=== PATIENT | male | born 1985 | race African-American/Black ===

== ENCOUNTER 2022-03-27 06:10 | Observation (INO) ==
[2022-03-27 07:00] LABS: Basophils % 0.3 % (0.0-0.8); Eosinophils # 0.1 10*3/uL (0.0-0.87); Eosinophils % 0.5 % (0.00-10.9); Hematocrit 42.4 VOL% (42.0-52.0); Hemoglobin 14.2 GM/DL (14.0-18.0); Immature Granulocytes % 0.2 %; Immature Granulocytes Absolute 0.02 #; Lymphocytes # 2.5 10*3/uL (1.4-4.0); Lymphocytes % 25.6 % (21.2-54.2); Mean Corpuscular HGB Conc 33.5 GM/DL (32-36); Mean Corpuscular Volume 101.2 FL (87-102); Mean Platelet Volume 11.8 FL (9.6-12.0); Monocytes # 0.8 10*3/uL (0.11-0.8); Monocytes % 7.9 % (1.7-12.7); Neutrophils % 65.5 % (38.7-73.9); Platelet Count 163 T/CUMM (130-400); Red Blood Count 4.19 MC/CUMM (3.8-5.5); Red Cell Distribution Width 13.3 % (9.3-17.3); White Blood Count 9.7 T/CUMM (4-12)
[2022-03-27 07:31] LABS: Calcium 8.8 MG/DL (8.5-10.1); Osmolality,Calculated 276.5 MOS/KG (273-304); Potassium 3.8 MMOL/L (3.5-5.1)
[2022-03-27] MEDS ORDERED: hydrALAZINE 20 MG/1 ML VIAL IV STA (09:14)
[2022-03-27] MEDS ORDERED: RIVAROXABAN 15 MG TABLET PO STA (09:45)
[2022-03-27] MEDS ORDERED: RIVAROXABAN 10 MG TABLET ONE (09:53)
[2022-03-27] MEDS ORDERED: GLUCAGON 1 MG VIAL IM PRN (10:51)
[2022-03-27] MEDS ORDERED: ACETAMINOPHEN 325 MG TABLET PO PRN (10:51)
[2022-03-27] MEDS ORDERED: ONDANSETRON 4 MG/2 ML VIAL IV PRN (10:51)
[2022-03-27] MEDS ORDERED: DEXTROSE 10% 250 ML BAG IV PRN (10:58)
[2022-03-27] MEDS ORDERED: NICOTINE 7 MG/24 HR PATCH TRANSDERM PRN (11:01)
[2022-03-27 14:06] LABS: PT Patient Result 10.9 SECS (10.1-12.1)
[2022-03-27] MEDS ORDERED: RIVAROXABAN 15 MG TABLET PO SCH (17:00)
[2022-03-27] MEDS: lisinopriL 10 MG TABLET PO SCH (17:42)
[2022-03-27] MEDS ORDERED: WARFARIN 7.5 MG TABLET PO SCH (18:00)
[2022-03-28 05:43] LABS: Basophils % 0.4 % (0.0-0.8); Eosinophils # 0.1 10*3/uL (0.0-0.87); Eosinophils % 1.2 % (0.00-10.9); Immature Granulocytes % 0.5 %; Immature Granulocytes Absolute 0.04 #; Lymphocytes # 1.9 10*3/uL (1.4-4.0); Mean Corpuscular HGB Conc 33.3 GM/DL (32-36); Mean Corpuscular Volume 101.2 FL (87-102); Mean Platelet Volume 11.2 FL (9.6-12.0); Monocytes # 0.5 10*3/uL (0.11-0.8); Monocytes % 7.1 % (1.7-12.7); Neutrophils % 64.8 % (38.7-73.9); Platelet Count 167 T/CUMM (130-400); Red Blood Count 4.15 MC/CUMM (3.8-5.5); Red Cell Distribution Width 13.2 % (9.3-17.3); White Blood Count 7.5 T/CUMM (4-12)
[2022-03-28 05:49] LABS: PT Patient Result 11.2 SECS (10.1-12.1)
[2022-03-28 06:08] LABS: Albumin 2.8 G/DL (3.4-5.0); Bilirubin,Total 0.6 MG/DL (0.20-1.00); Calcium 8.9 MG/DL (8.5-10.1); Osmolality,Calculated 278.3 MOS/KG (273-304); Potassium 3.7 MMOL/L (3.5-5.1); Risk Ratio 4.86; Thyroid Stimulating Hormone 1.7 uIU/ml (0.358-3.74); Total Protein 8.2 G/DL (6.4-8.2)
[2022-03-28] MEDS: lisinopriL 10 MG TABLET PO SCH (09:37)
[2022-03-28 12:19] VITALS: BP 113/74
== END 2022-03-28 18:20 | disposition home or self-care (01) ==
LOC: EDUNIT# → EDBD → N.ED 06:10 → N.EDINP 06:10 → SUATTDRO 10:51 → N.EDINP 16:20 → N.TELEN 16:38
PROVIDERS: ADMIT Family Medicine; ATTEND Internal Medicine

== ENCOUNTER 2022-09-21 04:09 | Observation (INO) ==
[2022-09-21 07:12] LABS: Mucus,Urine Occasional /LPF (Occasional); Squamous Epithelial Cell,Urine Occasional /HPF (0-10)
[2022-09-21 07:12] LABS: Basophils # 0.1 10*3/uL (0.0-0.2); Basophils % 0.4 % (0.0-0.8); Eosinophils # 0.1 10*3/uL (0.0-0.87); Eosinophils % 0.6 % (0.00-10.9); Hematocrit 45.4 VOL% (42.0-52.0); Hemoglobin 14.7 GM/DL (14.0-18.0); Immature Granulocytes % 0.5 %; Immature Granulocytes Absolute 0.07 #; Lymphocytes # 1.9 10*3/uL (1.4-4.0); Lymphocytes % 13.1 % (21.2-54.2); Mean Corpuscular HGB Conc 32.4 GM/DL (32-36); Mean Corpuscular Volume 101.6 FL (87-102); Mean Platelet Volume 10.7 FL (9.6-12.0); Monocytes # 1.1 10*3/uL (0.11-0.8); Monocytes % 7.3 % (1.7-12.7); Neutrophils % 78.1 % (38.7-73.9); Platelet Count 190 T/CUMM (130-400); Red Blood Count 4.47 MC/CUMM (3.8-5.5); Red Cell Distribution Width 13.5 % (9.3-17.3); White Blood Count 14.5 T/CUMM (4-12)
[2022-09-21 07:14] LABS: Bilirubin,Urine Negative (Negative); Blood, Urine Trace mg/dL (Negative); Glucose,Urine (UA) Negative (Negative); Ketones,Urine Negative (Negative); Nitrite,Urine Negative (Negative); Protein,Urine Negative (Negative); Urine Appearance Slightly Cloudy (Clear); Urine Color Yellow (Yellow); Urine pH 8.5 (4.5-8.0)
[2022-09-21 07:34] LABS: Albumin 3.5 G/DL (3.4-5.0); Bilirubin,Total 0.6 MG/DL (0.20-1.00); Calcium 9.4 MG/DL (8.5-10.1); Potassium 4.1 MMOL/L (3.5-5.1); Total Protein 9.1 G/DL (6.4-8.2)
[2022-09-21 07:34] LABS: Barbiturates Screen,Urine Negative (Negative); Benzodiazepines Screen,Urine Negative (Negative); Cannabinoid Screen,Urine Negative (Negative); Opiate Screen,Urine Negative (Negative); Phencyclidine Screen,Urine Negative (Negative)
[2022-09-21] MEDS ORDERED: KETOROLAC 30 MG/1 ML VIAL IV STA (08:11)
[2022-09-21] MEDS ORDERED: cefTRIAXone 1,000 MG in SODIUM CHLORIDE 0.9% 100 ML IV STA (09:04)
[2022-09-21] MEDS ORDERED: ENOXAPARIN 100 MG/ML SYRINGE SUBCUT STA (09:28)
[2022-09-21] MEDS ORDERED: ONDANSETRON 4 MG/2 ML VIAL IV PRN (10:05)
[2022-09-21] MEDS: RIVAROXABAN 15 MG TABLET PO SCH (16:05)
[2022-09-22 06:23] LABS: Basophils % 0.5 % (0.0-0.8); Eosinophils # 0.1 10*3/uL (0.0-0.87); Eosinophils % 1.9 % (0.00-10.9); Hematocrit 40.4 VOL% (42.0-52.0); Hemoglobin 13.3 GM/DL (14.0-18.0); Immature Granulocytes % 0.4 %; Immature Granulocytes Absolute 0.03 #; Lymphocytes % 25.9 % (21.2-54.2); Mean Corpuscular HGB Conc 32.9 GM/DL (32-36); Mean Corpuscular Volume 100.2 FL (87-102); Mean Platelet Volume 11.2 FL (9.6-12.0); Monocytes # 0.7 10*3/uL (0.11-0.8); Monocytes % 8.6 % (1.7-12.7); Neutrophils % 62.7 % (38.7-73.9); Platelet Count 153 T/CUMM (130-400); Red Blood Count 4.03 MC/CUMM (3.8-5.5); Red Cell Distribution Width 13.2 % (9.3-17.3); White Blood Count 7.6 T/CUMM (4-12)
[2022-09-22 07:01] LABS: Albumin 2.9 G/DL (3.4-5.0); Bilirubin,Total 0.8 MG/DL (0.20-1.00); Calcium 8.7 MG/DL (8.5-10.1); Osmolality,Calculated 274.5 MOS/KG (273-304); Potassium 3.6 MMOL/L (3.5-5.1); Risk Ratio 3.15; Thyroid Stimulating Hormone 2.2 uIU/ml (0.358-3.74); Total Protein 8.4 G/DL (6.4-8.2); VLDL Cholesterol 12.6 MG/DL
[2022-09-22] MEDS ORDERED: PANTOPRAZOLE 40 MG TABLET PO SCH (09:00)
[2022-09-22] MEDS: RIVAROXABAN 15 MG TABLET PO SCH (09:03)
[2022-09-22 12:11] VITALS: BP 114/84
[2022-10-12] MEDS ORDERED: RIVAROXABAN 20 MG TABLET PO SCH (17:00)
== END 2022-09-22 15:28 | disposition home or self-care (01) ==
LOC: N.ED 04:09 → N.EDINP 04:09 → SUATTDRO 10:05 → N.2W 15:14
PROVIDERS: ADMIT Family Medicine; ATTEND Internal Medicine